=== PATIENT | male | born 1955 | race African-American/Black ===

== ENCOUNTER 2021-05-18 15:55 | Emergency (ER) | payer BC, MEDICAID ==
[~2021-05-18] VITALS: Ht 177.8 cm; Wt 82.0 kg
[2021-05-18] MEDS ORDERED: IBUPROFEN 600MG TABLET PO ONE (21:15)
[2021-05-18] MEDS ORDERED: KETOROLAC 60MG/2ML VIAL IM ONE (22:15)
[2021-05-18 22:22] VITALS: BP 140/56
[2021-05-18] MEDS ORDERED: T3 PO (23:25)
[2021-05-18] MEDS ORDERED: IBUP-2029 MT (23:29)
== END 2021-05-18 23:47 | disposition home or self-care (01) ==
LOC: ER 15:55
DX: S52.691A Other fracture of lower end of right ulna, initial encounter for closed fracture (principal); E11.9 Type 2 diabetes mellitus without complications; I10 Essential (primary) hypertension; H91.3 Deaf nonspeaking, not elsewhere classified; Y08.89XA Assault by other specified means, initial encounter; Y93.9 Activity, unspecified; Y92.9 Unspecified place or not applicable
CPT/HCPCS: 29105; 73090; 96372; 99283; J1885

== ENCOUNTER 2021-05-20 10:47 | Emergency (ER) | payer BC, MEDICAID ==
[~2021-05-20] VITALS: Ht 170.2 cm; Wt 75.0 kg
[~2021-05-20 10:47] MED LIST: IBUP-2029 MT; T3 PO
[2021-05-20 11:27] VITALS: BP 113/53
[2021-05-20] MEDS ORDERED: ACETAMINOPHEN 325MG TABLET PO ONE (14:00)
[2021-05-20] MEDS ORDERED: IBUP-2029 MT (18:03)
[2021-05-20] MEDS ORDERED: ACET-2708 MT (18:03)
== END 2021-05-20 18:44 | disposition home or self-care (01) ==
LOC: ER 10:47
DX: S52.291A Other fracture of shaft of right ulna, initial encounter for closed fracture (principal); E11.9 Type 2 diabetes mellitus without complications; I10 Essential (primary) hypertension; X58.XXXA Exposure to other specified factors, initial encounter; Y93.89 Activity, other specified; Y92.89 Other specified places as the place of occurrence of the external cause
CPT/HCPCS: 99282

== ENCOUNTER 2021-05-27 07:06 | Emergency (ER) | payer BC, MEDICAID ==
[~2021-05-27] VITALS: Ht 175.3 cm; Wt 75.0 kg
[~2021-05-27 07:06] MED LIST changes: +ACET-2708 MT
[2021-05-27 07:49] VITALS: BP 167/110
== END 2021-05-27 09:11 | disposition home or self-care (01) ==
LOC: ER 07:06
DX: Z48.00 Encounter for change or removal of nonsurgical wound dressing (principal); E11.9 Type 2 diabetes mellitus without complications; I10 Essential (primary) hypertension; H91.3 Deaf nonspeaking, not elsewhere classified
CPT/HCPCS: 29105; 99283

== ENCOUNTER 2021-05-30 13:00 | Emergency (ER) | payer BC, MEDICAID ==
[~2021-05-30] VITALS: Ht 177.8 cm; Wt 73.0 kg
[2021-05-30] MEDS ORDERED: ACETAMINOPHEN 325MG TABLET PO NR (15:30)
[2021-05-30] MEDS ORDERED: ACET-2708 MT (16:27)
[2021-05-30] MEDS ORDERED: DIPH25CA83 MT (16:27)
[2021-05-30] MEDS ORDERED: DIPHENHYDRAMINE 25MG CAPSULE PO ONE (16:30)
[2021-05-30 17:06] VITALS: BP 121/63
== END 2021-05-30 17:10 | disposition home or self-care (01) ==
LOC: ER 13:00
DX: Z09 Encounter for follow-up examination after completed treatment for conditions other than malignant neoplasm (principal); S52.91XD Unspecified fracture of right forearm, subsequent encounter for closed fracture with routine healing; E11.9 Type 2 diabetes mellitus without complications; I10 Essential (primary) hypertension; H91.90 Unspecified hearing loss, unspecified ear; X58.XXXD Exposure to other specified factors, subsequent encounter
CPT/HCPCS: 99283; Q0163

== ENCOUNTER 2021-06-30 09:57 | Emergency (ER) | payer BC, MEDICAID ==
[~2021-06-30] VITALS: Ht 180.3 cm; Wt 76.0 kg
[~2021-06-30 09:57] MED LIST changes: +DIPH25CA83 MT
[2021-06-30 14:35] VITALS: BP 155/82
[2021-06-30] MEDS ORDERED: CEPHALEXIN 250MG CAPSULE PO ONE (15:15)
[2021-06-30] MEDS ORDERED: HYDROCODONE/ACETAMINOPHEN 5/325MG TABLET PO ONE (15:15)
[2021-06-30] MEDS ORDERED: IBUP-2029 MT (18:42)
[2021-06-30] MEDS ORDERED: SULF1TAB47 MT (18:42)
== END 2021-06-30 19:20 | disposition home or self-care (01) ==
LOC: ER 09:57
DX: S81.802A Unspecified open wound, left lower leg, initial encounter (principal); X58.XXXA Exposure to other specified factors, initial encounter; Y93.89 Activity, other specified; Y92.89 Other specified places as the place of occurrence of the external cause; Y99.8 Other external cause status; E11.9 Type 2 diabetes mellitus without complications; I10 Essential (primary) hypertension; Z79.899 Other long term (current) drug therapy
CPT/HCPCS: 82962; 99283

== ENCOUNTER 2021-07-03 09:42 | Emergency (ER) | payer BC, MEDICAID ==
[~2021-07-03] VITALS: Ht 165.1 cm; Wt 79.0 kg
[~2021-07-03 09:42] MED LIST changes: +SULF1TAB47 MT
[2021-07-03] MEDS ORDERED: SODIUM CHLORIDE 0.9% 1,000 ML IV ONE (10:45)
[2021-07-03] MEDS ORDERED: CLINDAMYCIN 600 MG in DEXTROSE 5% WATER 50 ML IV ONE (10:45)
[2021-07-03] MEDS ORDERED: CLINDAMYCIN 600MG PREMIX 50 ML IV NR (11:00)
[2021-07-03] MEDS ORDERED: ACETAMINOPHEN 325MG TABLET PO ONE (11:15)
[2021-07-03 11:52] LABS: BASOPHILS % 0.8 % (0.0-2.0); EOSINOPHILS % 3.2 % (0.0-5.0); HEMATOCRIT. 40.4 % (42.0-52.0); HEMOGLOBIN. 13.5 g/dL (14.0-18.0); LYMPHOCYTES % 30.6 % (20.0-50.0); MEAN CORPUSCULAR HEMOGLOBIN 34.5 pg (28.0-32.0); MEAN CORPUSCULAR VOLUME 103.8 fL (80.0-94.0); MEAN PLATELET VOLUME 7.4 fl (7.4-10.4); MONOCYTES % 6.3 % (2.0-8.0); NEUTROPHILS % 59.1 % (40.0-76.0); PLATELET 239 x1000/uL (130-400); RED CELL DISTRIBUTION WIDTH 13.2 % (11.6-14.6)
[2021-07-03 11:57] LABS: CHLORIDE 109 mEq/L (98-107)
[2021-07-03 14:06] VITALS: BP 110/78
== END 2021-07-03 14:46 | disposition short-term general hospital (02) ==
LOC: ER 10:05 → CANBEDREQ 16:37
DX: L97.829 Non-pressure chronic ulcer of other part of left lower leg with unspecified severity (principal); L03.116 Cellulitis of left lower limb
CPT/HCPCS: 36415; 80053; 85025; 87040; 87070; 87077; 87186; 87205; 96365; 99284; J3490; J7030; J7060